=== PATIENT | male | born 1965 | race Caucasian/White ===

== ENCOUNTER 2018-05-13 06:08 | Inpatient (IN) | payer BC ==
[~2018-05-13] VITALS: Ht 167.6 cm; Wt 81.2 kg
[2018-05-13 06:17] VITALS: BP 132/87
[2018-05-13] MEDS: MORPHINE SULFATE 4 MG/ML VIAL. IV PRN ×6 (06:48→19:19)
[2018-05-13] MEDS: IV NORMAL SALINE 1000ML BAG 1,000 ML IV SCH ×3 (06:50→23:45)
[2018-05-13] MEDS ORDERED: PREG300C PO (06:52)
[2018-05-13] MEDS ORDERED: MULT-505 PO (06:54)
[2018-05-13] MEDS ORDERED: CALC500T54 PO (07:09)
[2018-05-13 07:30] VITALS: BP 118/81
[2018-05-13] MEDS: ONDANSETRON PF 4 MG/2 ML VIAL. IV PRN ×3 (08:16→22:47)
[2018-05-13] MEDS: KETOROLAC 30 MG/ML VIAL. IV PRN ×3 (08:41→22:47)
[2018-05-13] MEDS: TAMSULOSIN 0.4 MG CAP.ER.24H. PO SCH (08:56)
[2018-05-13] MEDS: cefTRIAXone IV Push 1 GM VIAL. IVP SCH (08:56)
[2018-05-13] MEDS ORDERED: TAMSULOSIN 0.4 MG CAP.ER.24H. PO SCH (09:00)
[2018-05-13] MEDS: MULTIVITAMIN with MINERAL TABLET. PO SCH (09:59)
[2018-05-13] MEDS: CALCIUM CARBONATE 500 MG TABLET PO SCH (09:59)
[2018-05-13] MEDS: PREGABALIN 75 MG CAPSULE PO SCH (09:59)
--- NOTE | 2018-05-13 10:47 | PDOC2 ---
UROLOGY CONSULT Date of Consult Date of Consult DATE: 05/13/18 TIME: 10:38 Reason for Consult Reason for Consult: left ureteral stone Referring Physician Referring Physician: Dr. Rodriguez Identification/Chief Complaint Chief Complaint left flank pain Source Source: Chart review, Patient History of Present Illness Reason for Visit: 52 yo M with no past hx who presented overnight with sudden onset, severe left flank pain. Evaulation in the ED identified a 5 mm mid ureteral stone with proximal hydronephrosis in addition to bilateral non-obstructing renal stone. Afebrile. WBC 5. Cr 1.3 UA not concerning for infection. Currently sx are well controlled, but still rates pain 7/10. Current Medications Current Medications Current Medications Calcium Carbonate/ Glycine (Oscal) 500 mg DAILY PO Last administered on 09:59; Start 05/13/18 at 09:00 Ceftriaxone Sodium 1 gm/ Dextrose 50 ml @ 100 mls/hr Q24H IV ; Start 05/14/18 at 09:00; Status UNV Ceftriaxone Sodium (Rocephin) 1 gm Q24H IVP ; Start 05/13/18 at 09:00 Ketorolac Tromethamine (Toradol 30mg Vial) 30 mg PRN Q6HRS PRN IV PAIN Last administered on 05/13/18at 08:41; Start 05/13/18 at 08:30; Stop 05/18/18 at 08:29 Morphine Sulfate (Morphine Sulfate) 4 mg PRN Q2HR PRN IV PAIN Last administered on 05/13/18at 09:58; Start 05/13/18 at 06:30 Multivitamins (Thera M Plus) 1 tab DAILY PO Last administered on 05/13/18at 09: 59; Start 05/13/18 at 09:00 Ondansetron HCl (Zofran) 4 mg PRN Q4HRS PRN IV NAUSEA/VOMITING Last administered on 05/13/18 08:16; Start 05/13/18 at 06:30 Pregabalin (Lyrica) 300 mg DAILY PO Last administered on 05/13/18at 09:59; Start 05/13/18 at 09:00 Sodium Chloride 1,000 ml @ 100 mls/hr Q10H IV Last administered on 05/13/18at 06:50; Start 05/13/18 at 06:45 Tamsulosin HCl (Flomax) 0.4 mg DAILY PO Last administered on 05/13/18at 08:56; Start 05/13/18 at 09:00 Tamsulosin HCl (Flomax) 0.4 mg DAILY PO ; Start 05/13/18 at 09:00; Status UNV Allergies Allergies: Coded Allergies: No Known Drug Allergies (Unverified , 05/13/18) ROS Review Of Systems: Pertinent positives and negative reviewed and included in the HPI. Physical Exam Physical Exam: General: Pleasant, no acute distress, well groomed Eyes: conjunctiva anicteric, eyes full range of motion ENT: moist oral mucosa Neck: Trachea midline Respiratory: unlabored breathing, not using accessory muscles Cardiovascular: Normal temperature Abdomen: left CVA tenderness, nondistended Skin: no rashes or skin lesions on visualized skin Psych: normal mood, affect. Alert and oriented x 3. Vitals VITALS Vital Signs Date Time Temp Pulse Resp B/P (MAP) Pulse Ox O2 Delivery O2 Flow Rate FiO2 05/13/18 09:58 Room Air 05/13/18 07:30 95.9 65 18 118/81 (93) 95 95.9 Labs Labs Per HPI Images Images CT from [facility] reviewed Assessment/Plan Assessment/Plan 52 yo male with sudden onset renal colic 2/2 5 mm midureteral stone. Renal fcn WNL and no concerns for infection at this time. Reviewed treatment options including medical expulsive therapy vs cystoscopy with left retrograde pyelogram , ureteroscopy, laser lithotripsy and ureteral stent placement. Discussed the risks and benefits of each approach. Will tentatively add to OR schedule for tomorrow. NPO at [place], Gen diet and IVF today PRN pain meds Continue straining all urine KENNETH SUAZO MD May 13, 2018 10:47
--- NOTE | 2018-05-13 10:51 | HP ---
ADMIT DATE: 05/13/2018 HISTORY OF PRESENT ILLNESS: The patient is a 52-year-old male patient who basically came to the Emergency Room of [facility] complaining of left flank pain radiating down to the left groin. He initially told that this is an exacerbation of his chronic low back pain; however, as he sat in a chair for almost an hour and the pain just got worse and worse. He described the pain as deep cramping, throbbing sensation that radiates from the left loin to the left groin. He did have some nausea and dry heaves. He denied any fever or chills. Denied any dysuria, frequency or hematuria. He has no history of kidney stones in the past. He was extensively investigated in the Emergency Room and has had a CT scan of the abdomen without contrast, which basically showed that he has mild left obstructive uropathy secondary to a 5 mm ureteral calculus at the pelvic brim, has multiple bilateral nonobstructing renal calculi and therefore he was transferred to [facility] to continue with pain medication, IV fluid, antiemetic and to consult the Urology team. PAST MEDICAL HISTORY: Significant for type 2 diabetes, hyperlipidemia, and hypertension, all apparently resolved after he underwent gastric bypass surgery. He also has painful diabetic peripheral neuropathy, history of morbid obesity. He weighed 280 pounds and since surgery he lost about 120 pound, he is now 160. PAST SURGICAL HISTORY: Significant for gastric bypass surgery, left rotator cuff repair, C-spine fusion, esophagogastroduodenoscopy and colonoscopy. ALLERGIES: He has no known drug allergies. MEDICATIONS: He is currently on Lyrica 300 mg at nighttime and multivitamin. FAMILY HISTORY: He has 5 sisters and 2 brothers. One sister is older and everybody else is younger and all seemingly healthy. His father is still alive at age of 82 and has diabetes, throat cancer and heart issues. Mother at the age of 76; she was known to have COPD and questionable pancreatic cancer. SOCIAL HISTORY: He is , has 1 son and 1 daughter. He never smoked, drinks alcohol occasionally, does not use any illicit drugs. He works as a truck packer. REVIEW OF SYSTEMS: The patient denied any blurring of vision, cataract, glaucoma or macular degeneration. Denied any earache, tinnitus or sensorineural deafness. Denied any nosebleeds, stuffy nose or postnasal drip. Denied any sore throat, sore tongue, toothache, hoarseness of voice or difficulty swallowing. Did have some nausea and dry heaves, but denied any hematemesis, melena or hematochezia. Denied any dysuria, frequency or hematuria. Denied any chest pain, shortness of breath, orthopnea, or paroxysmal nocturnal dyspnea. Denied any cough, phlegm or hemoptysis. Denied any chills, rigors, or fever. Denied any dizziness, lightheadedness, or vertigo. PHYSICAL EXAMINATION: GENERAL: On arrival to the [facility], he looked well and was clearly in no apparent respiratory distress, slightly pale, but no jaundice, cyanosis, or thyromegaly. No jugular venous distension. No lower limb edema. VITAL SIGNS: His heart rate was 67, blood pressure 132/87, temperature was 97.6, respiratory rate was 18 and oxygen saturation was 96% on room air. HEAD, EYES, EARS, NOSE AND THROAT: Showed normocephalic, atraumatic. NECK: Supple. HEART: Showed normal first and second heart sounds. No gallop, rub or murmur. CHEST: Clear to auscultation. No crepitation or rhonchi. ABDOMEN: Distended, soft, nontender. No guarding or rigidity. No organomegaly. All hernial orifices intact. Bowel sounds normal. NEUROLOGIC: He was awake, alert, responding appropriately. All cranial nerves intact. He moves extremities without difficulty. He ambulates without assistance or assistive devices. LABORATORY DATA: While at [facility] Emergency Room, he has had lab work done showed a white cell count 5500, hemoglobin 15.7, hematocrit 45.8, MCV 89 and platelet count of 195,000 with normal manual differential. His urinalysis showed the urine was yellow, clear with a pH of 6, specific gravity of 1.015. The urine was negative for glucose, bilirubin, ketones, negative for blood as well as protein, negative for nitrite and leukocyte esterase. There are no rbc's, rare wbc's. His serum sodium was 141, potassium 3.8, chloride 102, bicarbonate 27, anion gap 12, glucose was 101, BUN 13, creatinine 1.2. Total bilirubin, AST, ALT, alkaline phosphatase were normal. His total protein was 7.4, albumin 4.3, calcium was 8.6, estimated GFR was 63 mL per minute. His CT scan of the abdomen and pelvis without contrast showed that the lung bases are clear. There is coronary artery disease, cardiac size normal, postsurgical changes of gastric bypass. Liver, gallbladder, spleen, pancreas, adrenal glands and abdominal aorta are normal. There are multiple bilateral nonobstructing renal calculi. There is no right hydronephrosis. There is small left renal cyst. There is moderate left perinephric stranding and mild left hydroureteronephrosis secondary to a 5 mm calculus at the pelvic brim. No dilated small bowel. The appendix is normal. Scattered stool in the colon, no colon wall thickening. No abdominal adenopathy or free fluid. Urinary bladder is normal, prostate size upper limit of normal. No pelvic free fluid and no inguinal adenopathy. No acute bony abnormality. ASSESSMENT: The patient basically was admitted to [facility] for mild left obstructive uropathy secondary to a 5 mm ureteral calculus at the pelvic brim, has multiple bilateral nonobstructing renal calculi. PLAN: To continue with IV fluid, antiemetic and pain medication in the form of morphine and ketorolac as well as Flomax. We will continue with his home medication and we will consult the Urology team. We will strain all the urine and if the stone does not come out spontaneously, then obvious the urologist might do cystoscopy and stent deployment. FALLON POLO MD DR: GRIS/kosta JOB#: [id number] / [id number]
[2018-05-13 11:26] VITALS: BP 116/80
[2018-05-13 15:58] VITALS: BP 110/80
[2018-05-13 19:00] VITALS: BP 130/83
[2018-05-13] MEDS: HYDROmorphone 2 MG/ML VIAL IV PRN (20:20)
[2018-05-13 23:00] VITALS: BP 116/71
[2018-05-14] VITALS (14 sets, daily range): BP systolic 110–163; BP diastolic 76–130
[2018-05-14] MEDS: HYDROmorphone 2 MG/ML VIAL IV PRN ×2 (02:29→08:03)
[2018-05-14] MEDS: ONDANSETRON PF 4 MG/2 ML VIAL. IV PRN ×3 (03:31→11:00)
[2018-05-14] MEDS: KETOROLAC 30 MG/ML VIAL. IV PRN ×3 (06:25→21:12)
[2018-05-14 06:35] LABS: HEMATOCRIT 36.7 % (39.0-53.0); HEMOGLOBIN 12.5 g/dL (13.0-17.5); RED BLOOD COUNT 4.05 x10^6/uL (4.30-5.70); RED CELL DISTRIBUTION WIDTH 13.5 % (11.5-14.5); WHITE BLOOD COUNT 5.2 x10^3/uL (4.0-11.0)
[2018-05-14 06:51] LABS: ALBUMIN 3.2 g/dL (3.4-5.0); ALBUMIN/GLOBULIN RATIO 1.2 (1.0-1.7); CREATININE 1.6 mg/dL (0.7-1.3); GFR 45.3; PHOSPHORUS 3.9 mg/dL (2.6-4.7); POTASSIUM 4.7 mmol/L (3.5-5.1); TOTAL BILIRUBIN 0.4 mg/dL (0.2-1.0); TOTAL PROTEIN 5.9 g/dL (6.4-8.2)
[2018-05-14] MEDS: cefTRIAXone IV Push 1 GM VIAL. IVP SCH (08:07)
[2018-05-14] MEDS: PREGABALIN 75 MG CAPSULE PO SCH (09:00)
[2018-05-14] MEDS: CALCIUM CARBONATE 500 MG TABLET PO SCH (09:00)
[2018-05-14] MEDS: TAMSULOSIN 0.4 MG CAP.ER.24H. PO SCH (09:00)
[2018-05-14] MEDS: MULTIVITAMIN with MINERAL TABLET. PO SCH (09:00)
[2018-05-14] MEDS ORDERED: IV RINGERS,LACTATED 1000ML 1,000 ML IV SCH (11:11)
[2018-05-14] MEDS ORDERED: MORPHINE SULFATE 2 MG/ML VIAL. IV PRN (11:15)
[2018-05-14] MEDS ORDERED: LIDOCAINE 1% PF 2 ML VIAL. ID PRN (11:15)
[2018-05-14] MEDS ORDERED: fentaNYL PF VIAL 100 MCG/2 ML VIAL IV PRN ×2 (11:15)
[2018-05-14] MEDS ORDERED: PROCHLORPERAZINE 10 MG/2 ML VIAL. IV PRN (11:15)
[2018-05-14] MEDS ORDERED: ONDANSETRON PF 4 MG/2 ML VIAL. IV PRN (11:15)
[2018-05-14] MEDS ORDERED: HYDROmorphone 2 MG/ML VIAL IV PRN (11:15)
[2018-05-14] MEDS ORDERED: PROCHLORPERAZINE 10 MG/2 ML VIAL. ONE (11:33)
[2018-05-14] MEDS ORDERED: fentaNYL PF VIAL 100 MCG/2 ML VIAL ONE (11:58)
[2018-05-14] MEDS ORDERED: IOHEXOL 300 MG/ML 100ML VIAL. ONE (12:01)
[2018-05-14] MEDS ORDERED: LIDOCAINE 2% JELLY 6ML IN APPLICATOR. ONE (12:01)
[2018-05-14 12:15] LABS: CALCIUM PTH 8.2 mg/dL (8.7-10.2); PHOSPHORUS PTH 3.8 mg/dL (2.5-4.5); PTH INTACT 47 pg/mL (15-65)
[2018-05-14] MEDS: IV NORMAL SALINE 1000ML BAG 1,000 ML IV SCH ×2 (12:45→22:28)
[2018-05-14] MEDS: MORPHINE SULFATE 4 MG/ML VIAL. IV PRN ×2 (15:08→18:16)
--- NOTE | 2018-05-14 15:59 | PDOC ---
BRIEF OPERATIVE NOTE Date: May 14, 2018 Pre-Op Diagnosis Left ureteral stone Post-Op Diagnosis same Procedure Performed cystoscopy, LEFT: ureteroscopy, laser lithotripsy, ureteral stent placement Surgeon Manuelito [employer] Sales Manager Medical None Anesthesia Type: General Blood Loss <5 cc Specimens Obtained None Findings As dictated Complications None Operative Note Dictation #[id number] KENNETH SUAZO MD May 14, 2018 15:58
--- NOTE | 2018-05-14 16:15 | OP ---
DATE OF SURGERY: 05/14/2018 PREOPERATIVE DIAGNOSIS: Obstructing mid ureteral stone, left. POSTOPERATIVE DIAGNOSIS: Obstructing mid ureteral stone, left. PROCEDURES PERFORMED: 1. Cystourethroscopy. 2. Left ureteroscopy. 3. Laser lithotripsy. 4. A 6-Kyrgyz x 26-cm double-J ureteral stent on string placement. ANESTHESIA: General. COMPLICATIONS: None. ESTIMATED BLOOD LOSS: Less than 5 mL. INDICATION FOR PROCEDURE: The patient is a 52-year-old male who presented yesterday with renal colic and was found to have an obstructing 7 mm mid ureteral stone. He was counseled regarding options and elected for the above-mentioned procedures. DESCRIPTION OF PROCEDURE: The patient was met in the preoperative holding area where his procedure, risks, benefits, and alternatives were reviewed in detail. Informed consent was obtained. He was brought back to the operating room and placed supine on the operating table. A timeout was called, identifying the correct patient, procedure, preoperative antibiotics and left side laterality. All members of surgical team were in agreement. General anesthesia was induced and he was repositioned into dorsal lithotomy, prepped and draped in sterile fashion. A 21-Kyrgyz rigid cystoscope was placed atraumatically through his urethra into his bladder. No abnormalities were noted on cystoscopy. His prostate was 2 cm bilobar and nonobstructing. His ureteral orifices were orthotopic in position. His left ureteral orifice was cannulated with a Sensor tip wire. This was fed up to the renal pelvis under fluoroscopic guidance. The bladder was emptied and the scope was removed. Alongside the wire, a semirigid ureteroscope was placed. The stone in question was identified in the middle third of the ureter. Using a 200 micron holmium laser this was dusted. There were no large fragments to remove with the basket. We then performed ureteroscopy all the way up to the ureteropelvic junction. On looking the scope out, we did not identify any large fragments or trauma within the ureter. The rigid cystoscope was replaced and the bladder was inspected. No trauma was noted. The bladder was emptied and the scope was removed under direct vision. Over the remaining wire, a 6-Kyrgyz x 26-cm double-J ureteral stent was placed using fluoroscopic guidance. Good proximal curl and distal curls were noted within the renal pelvis and bladder respectively. This was then tegadermed to his penis. He was awoken and transferred to the PACU in stable condition. All images were saved into PACS. He will remove his stent at home on Monday and plans for outpatient followup for metabolic evaluation in approximately 8 weeks. KENNETH SUAZO MD DR: JOSÉ MIGUEL/kosta JOB#: [id number] / [id number]
[2018-05-14] MEDS: LACTOBACILLUS RHAMNOSUS GG 1 CAPSULE. PO SCH (21:11)
--- NOTE | 2018-05-15 00:39 | PN ---
DATE: 05/14/2018 SUBJECTIVE: The patient is resting, slightly propped up in bed, in no apparent respiratory distress. He is awake, alert, continued to complain of severe pain and left flank pain radiating down to the left groin. The pain is not responding to Toradol or morphine and only responded to hydromorphone. He was seen by the urologist and apparently the plan is for him to have to go for cystoscopy today at around 10:30. PHYSICAL EXAMINATION: GENERAL: When I saw him this morning, he looked well and was clearly in no apparent respiratory distress. No pallor, jaundice, cyanosis or thyromegaly. No jugular venous distension. No limb edema. VITAL SIGNS: His heart rate was 66, blood pressure was 126/82, temperature was 97.9, respiratory rate was 16 and oxygen saturation was 96%. HEAD, EYES, EARS, NOSE AND THROAT: Showed normocephalic and atraumatic. NECK: Supple. HEART: Showed normal first and second heart sounds with no gallop, rub or murmur. CHEST: Clear to auscultation. No crepitation or rhonchi. ABDOMEN: Distended, soft and nontender. No guarding or rigidity. No organomegaly. All hernial orifice intact. Bowel sounds normal. NEUROLOGIC: He was awake, alert and responding appropriately. All cranial nerves are intact. He moves extremities without difficulty. He ambulates without assistance or assistive devices. His intake over the last 24 hours was 1800 and output was 1300. LABORATORY DATA: This morning showed a serum sodium 140, potassium 4.7, chloride 106, bicarbonate 28, anion gap of 6, BUN 15, creatinine 1.6, estimated GFR was 45 mL per minute, glucose 104, calcium was 8, phosphorus 3.9. His total bilirubin, AST, ALT and alkaline phosphatase were normal. Total protein was 5.9 and albumin 3.2. His white cell count was 5200, hemoglobin 12.5, hematocrit 36.7, MCV 91 and platelet count 158,000. ASSESSMENT: 1. Left ureteral obstructing stone and left-sided hydroureteronephrosis. 2. The patient has multiple bilateral nonobstructing renal calculi. 3. Other medical problems include type 2 diabetes mellitus that has resolved together with hyperlipidemia and hypertension, all apparently resolved after he underwent gastric bypass surgery. He continued to have painful diabetic peripheral neuropathy for which he is on Lyrica 300 mg at bedtime. He has also acute kidney injury. His creatinine has risen from 1.2 to 1.6, most likely due to obstructive nephropathy. PLAN: My plan is to continue the IV fluid, IV antibiotic and IV pain medication. The patient is scheduled for cystourethroscopy and stent deployment. FALLON POLO MD DR: GRIS/kosta JOB#: [id number] / [id number]
[2018-05-15] MEDS: IV NORMAL SALINE 1000ML BAG 1,000 ML IV SCH (01:28)
[2018-05-15 03:00] VITALS: BP 131/65
[2018-05-15] MEDS: KETOROLAC 30 MG/ML VIAL. IV PRN (03:21)
[2018-05-15 03:46] LABS: HEMATOCRIT 37.6 % (39.0-53.0); RED BLOOD COUNT 4.19 x10^6/uL (4.30-5.70)
[2018-05-15 04:05] LABS: CALCIUM 8.7 mg/dL (8.5-10.1); CREATININE 1.2 mg/dL (0.7-1.3); GFR 63.1; POTASSIUM 4.3 mmol/L (3.5-5.1)
[2018-05-15] MEDS: MORPHINE SULFATE 4 MG/ML VIAL. IV PRN (06:16)
[2018-05-15 07:00] VITALS: BP 134/78
[2018-05-15] MEDS ORDERED: CEFU500T46 PO (08:04)
[2018-05-15] MEDS ORDERED: OXYC-323 PO (08:04)
[2018-05-15] MEDS: cefTRIAXone IV Push 1 GM VIAL. IVP SCH (08:40)
[2018-05-15] MEDS: oxyCODONE/APAP 5/325 1 TAB TABLET PO PRN ×2 (08:41→12:15)
[2018-05-15] MEDS: TAMSULOSIN 0.4 MG CAP.ER.24H. PO SCH (08:44)
[2018-05-15] MEDS: PREGABALIN 75 MG CAPSULE PO SCH (08:44)
[2018-05-15] MEDS: CALCIUM CARBONATE 500 MG TABLET PO SCH (08:44)
[2018-05-15] MEDS: LACTOBACILLUS RHAMNOSUS GG 1 CAPSULE. PO SCH (08:44)
[2018-05-15] MEDS: MULTIVITAMIN with MINERAL TABLET. PO SCH (08:44)
--- NOTE | 2018-05-15 08:47 | PDOC ---
SUBJECTIVE Subjective Pt is having some trouble getting his pain under control, complains of dysuria when he urinates. Urine is light red to rust colored, but clear and without clots. OBJECTIVE Objective Physical Exam: General appearance: Alert and Oriented Head: Normocephalic, without obvious abnormality Eyes: conjunctivae/corneas clear. PERRL, EOM's intact. Fundi benign Back: no CVA pain bilat. Lungs: regular respirations, non labored breathing. Abdomen: soft, non-tender. Pelvic: circumcised phallus WNL with stent strings taped to the top with tegaderm Vital Signs Vital Signs Date Time Temp Pulse Resp B/P (MAP) Pulse Ox O2 Delivery O2 Flow Rate FiO2 05/15/18 08:13 Room Air 05/15/18 07:00 98.2 60 12 134/78 (96) 96 Room Air 98.2 05/15/18 06:59 Room Air 05/15/18 06:16 Room Air 05/15/18 03:00 98.1 65 18 131/65 (87) 96 Room Air 98.1 05/14/18 23:00 97.5 81 18 138/79 (98) 97 Room Air 97.5 05/14/18 19:50 Room Air 05/14/18 19:00 97.9 60 18 135/87 (103) 93 Room Air 97.9 05/14/18 18:45 95 05/14/18 18:16 95 Room Air 05/14/18 18:04 59 129/90 (103) 95 Room Air 05/14/18 17:04 59 127/85 (99) 94 Room Air 05/14/18 16:34 58 136/79 (98) 93 Room Air 05/14/18 16:04 69 147/84 (105) 93 Room Air 05/14/18 15:49 62 148/76 (100) 92 Room Air 05/14/18 15:34 69 144/84 (104) 91 Room Air 05/14/18 15:30 10.0 05/14/18 15:19 71 155/97 (116) 92 Room Air 05/14/18 15:11 66 162/89 (113) 93 Room Air 05/14/18 15:08 92 Room Air 05/14/18 15:05 79 161/130 (140) 94 Room Air 05/14/18 14:50 64 16 163/85 (111) 92 Room Air 05/14/18 14:16 98.2 81 16 142/66 94 Room Air 98.2 05/14/18 14:01 98.2 86 18 144/76 97 Room Air 98.2 05/14/18 13:46 68 14 123/69 100 Simple Mask 10 05/14/18 13:31 Mask 10 05/14/18 13:31 98.2 74 12 110/52 100 Simple Mask 10 98.2 05/14/18 10:57 97.1 63 16 181/97 96 Room Air 97.1 I & O Intake and Output 05/15/18 07:00 Intake Total 1100 ml Output Total 1185 ml Balance -85 ml Intake Oral 100 ml IV Total 1000 ml Output Urine Total 1175 ml Estimated Blood Loss 10 ml PHYSICAL EXAM Physical Exam Physical Exam: General appearance: Alert and Oriented Head: Normocephalic, without obvious abnormality Eyes: conjunctivae/corneas clear. PERRL, EOM's intact. Fundi benign Back: no CVA pain bilat. Lungs: regular respirations, non labored breathing. Abdomen: soft, non-tender. Pelvic: circumcised phallus WNL with stent strings taped to the top with tegaderm ASSESSMENT/PLAN Assessment/Plan Pt given copy of op report and plan for follow up discussed with patient. All questions answered. Patient will remove stent at home on Monday using a Smoothe, firm motion until stent is all the way out of his body. Discussed different ways to do this with patient for best chance of success. Trial of oral medications this am to see if we can get pain control, then D/C this afternoon. Pyridium prescribed for patient for complaints of dysuria. RX also written for 24 tabs total of Pyridium 200 mg TID whenever he does leave [facility] , total 24 no refills. Given to attending RN. Follow up in eight weeks with Dr. Billings as an outpatient. Will coordinate with space scheduler to get him an appointment. Ok from a Urology perspective, to discharge whenever pain is well controlled and medical team is ready. Problems: (1) Hydronephrosis with renal and ureteral calculous obstruction COMMENT Lab Laboratory Tests Test 05/14/18 13:35 05/15/18 02:50 Glucose (Fingerstick) 97 mg/dL (70-99) White Blood Count 6.0 x10^3/uL (4.0-11.0) Red Blood Count 4.19 x10^6/uL (4.30-5.70) Hemoglobin 13.0 g/dL (13.0-17.5) Hematocrit 37.6 % (39.0-53.0) Mean Corpuscular Volume 90 fL (79-100) Mean Corpuscular Hemoglobin 31 pg (25-35) Mean Corpuscular Hemoglobin Concent 35 g/dL (31-37) Red Cell Distribution Width 13.0 % (11.5-14.5) Platelet Count 150 x10^3/uL (140-400) Sodium Level 141 mmol/L (136-145) Potassium Level 4.3 mmol/L (3.5-5.1) Chloride Level 105 mmol/L (98-107) Carbon Dioxide Level 26 mmol/L (21-32) Anion Gap 10 (6-14) Blood Urea Nitrogen 14 mg/dL (8-26) Creatinine 1.2 mg/dL (0.7-1.3) Estimated GFR (Cockcroft-Gault) 63.1 Glucose Level 113 mg/dL (70-99) Calcium Level 8.7 mg/dL (8.5-10.1) SANDRA BURKETT APRN May 15, 2018 08:47
[2018-05-15] MEDS ORDERED: PHENAZOPYRIDINE 200 MG TABLET. PO PRN (09:00)
[2018-05-15 11:00] VITALS: BP 139/82
--- NOTE | 2018-05-15 14:14 | DS ---
DATE OF DISCHARGE: 05/15/2018 HOSPITAL COURSE: The patient is a 52-year-old male patient who was admitted with pain in the left loin radiating down to the left groin. He was found to have an obstructing mid ureteral stone in the left ureter with left side hydroureteronephrosis, also has acute kidney injury with creatinine has risen from 1.2-1.6 and he was admitted to [facility] as a transfer from the Emergency Room to [facility]. Continue with IV fluid, IV antibiotic, pain medication as well as Flomax. He was seen in consultation by the Urology team and he underwent cystourethroscopy, left ureteroscopy, laser lithotripsy. Has also a 6-Jamaican x 26 double-J ureteral stent placement. Did very well. When I saw him today, he looked well and was clearly in no apparent respiratory distress. On questioning him, he denied any complaint. PHYSICAL EXAMINATION: GENERAL: When I examined him, he looked well and was clearly in no apparent respiratory distress. No pallor, jaundice, cyanosis or thyromegaly. No jugular venous distension. No lower limb edema. VITAL SIGNS: His heart rate was 65, blood pressure 131/65, temperature was 98.1, respiratory rate was 18 and oxygen saturation was 96%. HEAD, EYES, EARS, NOSE AND THROAT: Showed normocephalic, atraumatic. NECK: Supple. HEART: Showed normal first and second heart sounds. No gallop, rub or murmur. CHEST: Clear to auscultation. No crepitation or rhonchi. ABDOMEN: Distended, soft, nontender. No guarding or rigidity. No organomegaly. Hernial orifices intact. Bowel sounds normal. NEUROLOGIC: He was awake, alert, responding appropriately. All cranial nerves intact. He moves extremities without difficulty. He ambulates without assistance or assistive devices. His intake was 1800, output was 1500. LABORATORY DATA: His white cell count was 6000, hemoglobin was 13, hematocrit 37, MCV 90 and platelet count 250,000. His chemistry showed a serum sodium 141, potassium 4.3, chloride 105, bicarbonate 26, anion gap of 10, BUN 14, creatinine 1.2, estimated GFR was 63 mL per minute, his glucose 113, calcium was 8.7. Given that he has multiple stones in both kidneys. I did check his intact PTH and was only 47 ruling out the possibility of primary hyperparathyroidism as cause of his stones. DISCHARGE MEDICATIONS: He will be discharged home to continue on cefuroxime 500 mg twice a day and oxycodone/APAP 5/325 one tablet 4 times a day. Should continue on his multivitamin 1 tablet once a day, pregabalin for Lyrica 300 mg at bedtime and calcium carbonate 500 mg once a day. FINAL DISCHARGE DIAGNOSES: 1. Obstructing mid ureteral stone in the left side with hydroureteronephrosis. 2. Acute kidney injury, resolved. 3. Morbid obesity, status post gastric bypass surgery, type 2 diabetes, hyperlipidemia, hypertension, all resolved. Has painful peripheral diabetic neuropathy for which he is on Lyrica. FALLON POLO MD DR: GRIS/kosta JOB#: [id number] / [id number]
== END 2018-05-14 12:30 | disposition home or self-care (01) | DRG 660 ==
LOC: 4 NORTH 06:08
PROVIDERS: ADMIT Internal Medicine; ATTEND Internal Medicine
PROC: 0T778DZ Dilation of Left Ureter with Intraluminal Device, Via Natural or Artificial Opening Endoscopic (ICD-10-PCS; principal; 2018-05-13)
PROC: 0TC78ZZ Extirpation of Matter from Left Ureter, Via Natural or Artificial Opening Endoscopic (ICD-10-PCS; 2018-05-13)
DX: N13.2 Hydronephrosis with renal and ureteral calculous obstruction (principal); N13.8 Other obstructive and reflux uropathy; N17.9 Acute kidney failure, unspecified; E11.42 Type 2 diabetes mellitus with diabetic polyneuropathy; E66.01 Morbid (severe) obesity due to excess calories; E78.5 Hyperlipidemia, unspecified; G89.29 Other chronic pain; I10 Essential (primary) hypertension; Z80.8 Family history of malignant neoplasm of other organs or systems; Z82.5 Family history of asthma and other chronic lower respiratory diseases; Z83.3 Family history of diabetes mellitus; Z98.1 Arthrodesis status; Z98.84 Bariatric surgery status; Z68.28 Body mass index [BMI] 28.0-28.9, adult
CPT/HCPCS: 36415; 76000; 80048; 80053; 82962; 83970; 84100; 85027; 90471; 90756; A7015; C1769; C2617; J0696; J0780; J1170; J1885; J2270; J2405; J3010; J7030; Q9967; Q2035